=== PATIENT | male | born 2000 | race African-American/Black ===

== ENCOUNTER 2019-03-20 20:26 | Emergency (ER) | payer OTHER ==
[~2019-03-20] VITALS: Ht 175.3 cm; Wt 80.0 kg
[2019-03-20 22:08] LABS: APPEARANCE,URINE CLEAR (CLEAR); BILIRUBIN,URINE NEGATIVE (NEGATIVE); GLUCOSE, URINE (UA) NEGATIVE (NEGATIVE); KETONES,URINE NEGATIVE (NEGATIVE); LEUKOCYTE ESTERASE ,URINE NEGATIVE (NEGATIVE); NITRATE,URINE NEGATIVE (NEGATIVE); OCCULT BLOOD,URINE NEGATIVE (NEGATIVE); PROTEIN,URINE NEGATIVE (NEGATIVE)
[2019-03-20 22:49] VITALS: BP 140/80
== END 2019-03-20 23:36 | disposition home or self-care (01) ==
LOC: EMS 20:28
DX: I86.1 Scrotal varices (principal); N50.9 Disorder of male genital organs, unspecified
CPT/HCPCS: 76870; 87491; 87591